=== PATIENT | female | born 1995 | race Caucasian/White ===

== ENCOUNTER 2017-05-27 13:17 | Emergency (ER) | payer BC ==
[~2017-05-27] VITALS: Ht 149.9 cm; Wt 68.0 kg
[~2017-05-27 13:17] MED LIST: CIPRO500 MG PO; MICROGESTIN FE1 EACH PO; PYRIDIUM200 MG PO
[2017-05-27 14:34] LABS: MCH 29.6 PG (29.0-34.0); MCHC 33.9 G/DL (30.0-36.0); MCV 87.5 FL (83-99); MEAN PLAT.VOLUME 10.5 uM^3 (9.5-12.4); PLATELET COUNT 243 K/uL (156-360); RBC DIS.WIDTH-CV 12.1 % (11.8-14.6); RBC DIS.WIDTH-SD 38.7 % (39-53); RED BLOOD COUNT 5.03 M/uL (3.80-5.20); WHITE BLOOD COUNT 11.4 K/uL (4.1-10.2)
[2017-05-27 14:42] LABS: CHLORIDE 106 mEq/L (99-109); POTASSIUM 3.9 mEq/L (3.7-5.4); SODIUM 138 mEq/L (136-147)
[2017-05-27 14:44] LABS: GLUCOSE 74 mg/dL (70-99)
[2017-05-27 14:45] LABS: ANION GAP 11 MEQ/L (2-14)
[2017-05-27 14:46] LABS: TOTAL BILIRUBIN 0.5 mg/dL (0.0-1.0)
[2017-05-27 14:48] LABS: ALKALINE PHOSPHATASE 47 IU/L (3-129); GFR ESTIMATE (CALCULATED) > 59 mL/min/
[2017-05-27 14:49] LABS: UREA NITROGEN (BUN) 7 mg/dL (9-23)
[2017-05-27 15:15] LABS: QUANTITATIVE HCG 109903.1 MIU/ML
[2017-05-27 15:56] LABS: ADD MIUA? YES; BILIRUBIN NEGATIVE; BLOOD NEGATIVE; COLOR YELLOW ((YELLOW)); GLUCOSE (STRIP) NEGATIVE; KETONES 80; LEUKOCYTES LARGE; NITRITE NEGATIVE; PROTEIN (STRIP) NEGATIVE; SPECIFIC GRAVITY 1.015 (1.000-1.030); UROBILINOGEN 0.2 MG/DL (0.2-1.0)
[2017-05-27 16:03] LABS: BACTERIA RARE /HPF; EPITHELIAL CELLS 2+ /HPF; MUCUS TRACE /LPF; RED BLOOD CELLS 0-5 /HPF (0-5); UCUL ADDED? YES; WHITE BLOOD CELLS 15-20 /HPF (0-5)
[2017-05-27] MEDS ORDERED: ZOFRAN ODT4 MG PO (16:09)
[2017-05-27] MEDS ORDERED: MACROBID100 MG PO (16:09)
[2017-05-27 16:36] VITALS: BP 102/55
== END 2017-05-27 16:37 | disposition home or self-care (01) ==
LOC: EME 13:17
PROVIDERS: Nurse Practitioner Family
DX: N39.0 Urinary tract infection, site not specified (principal); R11.2 Nausea with vomiting, unspecified; Z3A.00 Weeks of gestation of pregnancy not specified; Z79.3 Long term (current) use of hormonal contraceptives; Z88.1 Allergy status to other antibiotic agents; Z88.0 Allergy status to penicillin
CPT/HCPCS: 80053; 81003; 84702; 85027; 87086; 99281; 99285; J7030

== ENCOUNTER 2017-07-30 09:24 | Emergency (ER) | payer OTHER ==
[~2017-07-30] VITALS: Ht 149.9 cm; Wt 67.4 kg
[~2017-07-30 09:24] MED LIST changes: +MACROBID100 MG PO; +ZOFRAN ODT4 MG PO
[2017-07-30 10:27] LABS: HEMATOCRIT 36.7 % (36.0-46.0); MCH 30.4 PG (29.0-34.0); MCHC 34.3 G/DL (30.0-36.0); MCV 88.6 FL (83-99); MEAN PLAT.VOLUME 10.4 uM^3 (9.5-12.4); PLATELET COUNT 198 K/uL (156-360); RBC DIS.WIDTH-CV 13.4 % (11.8-14.6); RBC DIS.WIDTH-SD 43.7 % (39-53); RED BLOOD COUNT 4.14 M/uL (3.80-5.20); WHITE BLOOD COUNT 10.5 K/uL (4.1-10.2)
[2017-07-30 10:41] LABS: CHLORIDE 103 mEq/L (99-109); POTASSIUM 3.7 mEq/L (3.7-5.4); SODIUM 136 mEq/L (136-147)
[2017-07-30 10:43] LABS: GLUCOSE 83 mg/dL (70-99)
[2017-07-30 10:44] LABS: ANION GAP 10 MEQ/L (2-14)
[2017-07-30 10:45] LABS: TOTAL BILIRUBIN 0.4 mg/dL (0.0-1.0)
[2017-07-30 10:46] LABS: ALKALINE PHOSPHATASE 52 IU/L (3-129)
[2017-07-30 10:47] LABS: GFR ESTIMATE (CALCULATED) > 59 mL/min/
[2017-07-30 10:48] LABS: UREA NITROGEN (BUN) 7 mg/dL (9-23)
[2017-07-30 11:16] LABS: QUANTITATIVE HCG 49618.1 MIU/ML
[2017-07-30 13:59] LABS: ADD MIUA? YES; BILIRUBIN NEGATIVE; BLOOD NEGATIVE; COLOR YELLOW ((YELLOW)); GLUCOSE (STRIP) NEGATIVE; KETONES 20; LEUKOCYTES MODERATE; NITRITE NEGATIVE; PROTEIN (STRIP) NEGATIVE; SPECIFIC GRAVITY 1.014 (1.000-1.030); UROBILINOGEN 0.2 MG/DL (0.2-1.0)
[2017-07-30 14:34] LABS: BACTERIA 1+ /HPF; CASTS NONE SEEN /LPF; CRYSTALS NONE SEEN; EPITHELIAL CELLS 2+ /HPF; MUCUS 1+ /LPF; RED BLOOD CELLS NONE SEEN /HPF (0-5); UCUL ADDED? YES
[2017-07-30] MEDS ORDERED: MACROBID100 MG PO (15:25)
[2017-07-30 17:46] VITALS: BP 111/65
== END 2017-07-30 17:47 | disposition home or self-care (01) ==
LOC: EME 09:24
DX: O23.42 Unspecified infection of urinary tract in pregnancy, second trimester (principal); O26.892 Other specified pregnancy related conditions, second trimester; R10.9 Unspecified abdominal pain; Z3A.17 17 weeks gestation of pregnancy; Z88.8 Allergy status to other drugs, medicaments and biological substances
CPT/HCPCS: 76805; 80053; 81003; 84702; 85027; 87086; 99281; 99285; J7030

== ENCOUNTER → 2017-10-28 | Outpatient (CLI) | payer OTHER ==
[~2017-10-28] VITALS: Ht 152.4 cm; Wt 75.0 kg
[~2017-10-28] MED LIST changes: +PRENATAL TABLE1 EAC3 PO
[2017-10-28 08:12] VITALS: BP 109/57
== END | disposition home or self-care (01) ==
LOC: IVINF 08:00
DX: Z34.82 Encounter for supervision of other normal pregnancy, second trimester (principal); Z3A.28 28 weeks gestation of pregnancy
CPT/HCPCS: 96372; J2790

== ENCOUNTER 2018-01-15 10:14 | Inpatient (IN) | payer OTHER ==
[~2018-01-15] VITALS: Ht 149.9 cm; Wt 87.9 kg
[2018-01-15] VITALS (14 sets, daily range): BP systolic 109–150; BP diastolic 60–85
[2018-01-15 11:21] LABS: BASOPHIL (%) 0.4 % (0-1); BASOPHIL COUNT 0.1 K/uL (0-0.1); EOSINOPHIL (%) 0.3 % (0-5); EOSINOPHIL COUNT 0.1 K/uL (0-0.3); HEMATOCRIT 34.4 % (36.0-46.0); HEMOGLOBIN 11.3 G/DL (11.9-15.5); IMMATURE GRANULOCYTE (%) 2.4 % (0.0-0.7); LYMPHOCYTE (%) 13.3 % (15-42); LYMPHOCYTE COUNT 3.4 K/uL (1.0-2.8); MCH 28.2 PG (29.0-34.0); MCHC 32.8 G/DL (30.0-36.0); MCV 85.8 FL (83-99); MONOCYTE (%) 8.7 % (3-12); MONOCYTE COUNT 2.2 K/uL (0-0.8); NEUTROPHIL (%) 74.9 % (45-76); NEUTROPHIL COUNT 18.9 K/uL (1.8-6.4); PLATELET COUNT 224 K/uL (156-360); RBC DIS.WIDTH-CV 13.7 % (11.8-14.6); RBC DIS.WIDTH-SD 42.2 % (39-53); RED BLOOD COUNT 4.01 M/uL (3.80-5.20); WHITE BLOOD COUNT 25.2 K/uL (4.1-10.2)
[2018-01-15] MEDS ORDERED: IBUPROFEN800 MG PO (15:50)
[2018-01-15 17:06] LABS: BASOPHIL (%) 0.2 % (0-1); BASOPHIL COUNT 0.1 K/uL (0-0.1); EOSINOPHIL (%) 0 % (0-5); HEMATOCRIT 31.1 % (36.0-46.0); HEMOGLOBIN 10.4 G/DL (11.9-15.5); IMMATURE GRANULOCYTE (%) 1.5 % (0.0-0.7); LYMPHOCYTE (%) 5.5 % (15-42); LYMPHOCYTE COUNT 1.7 K/uL (1.0-2.8); MCH 29.1 PG (29.0-34.0); MCHC 33.4 G/DL (30.0-36.0); MCV 86.9 FL (83-99); MONOCYTE (%) 6.3 % (3-12); MONOCYTE COUNT 1.9 K/uL (0-0.8); NEUTROPHIL (%) 86.5 % (45-76); NEUTROPHIL COUNT 25.8 K/uL (1.8-6.4); PLATELET COUNT 191 K/uL (156-360); RBC DIS.WIDTH-CV 13.7 % (11.8-14.6); RBC DIS.WIDTH-SD 42.4 % (39-53); RED BLOOD COUNT 3.58 M/uL (3.80-5.20); WHITE BLOOD COUNT 29.9 K/uL (4.1-10.2)
[2018-01-15 17:15] LABS: ALBUMIN 2.9 G/DL (3.2-4.8); CHLORIDE 107 MEQ/L (99-109); POTASSIUM 4.1 MEQ/L (3.7-5.4); SODIUM 138 MEQ/L (136-147); TOTAL BILIRUBIN 0.3 MG/DL (0.0-1.0)
[2018-01-15 17:21] LABS: ALKALINE PHOSPHATASE 329 IU/L (3-129); ALT (GPT) 6 IU/L (3-49); AST (GOT) 16 IU/L (2-34); CREATININE 0.8 MG/DL (0.6-1.3); GFR ESTIMATE (CALCULATED) > 59 mL/min/; GLUCOSE 127 mg/dL (70-99); TOTAL PROTEIN 5.7 G/DL (6.4-8.3); UREA NITROGEN (BUN) 9 mg/dL (9-23)
[2018-01-16 16:15] VITALS: BP 140/70
[2018-01-17 08:16] VITALS: BP 124/60
== END 2018-01-17 13:56 | disposition home or self-care (01) | DRG 775 ==
LOC: LDRP-OP 10:14 → 2WEST 10:15
PROVIDERS: Advanced Practice Midwife; Obstetrics & Gynecology Gynecology
PROC: 00HU33Z Insertion of Infusion Device into Spinal Canal, Percutaneous Approach (ICD-10-PCS; principal; 2018-01-15)
PROC: 3E0R3BZ Introduction of Anesthetic Agent into Spinal Canal, Percutaneous Approach (ICD-10-PCS; principal; 2018-01-15)
PROC: 10E0XZZ Delivery of Products of Conception, External Approach (ICD-10-PCS; principal; 2018-01-15)
DX: O99.340 Other mental disorders complicating pregnancy, unspecified trimester (principal); F41.9 Anxiety disorder, unspecified; O99.213 Obesity complicating pregnancy, third trimester; Z3A.00 Weeks of gestation of pregnancy not specified; E66.3 Overweight; Z3A.39 39 weeks gestation of pregnancy; Z37.0 Single live birth; Z68.29 Body mass index [BMI] 29.0-29.9, adult
CPT/HCPCS: 80053; 83030; 85025; 85025 91; 86850; 86900; 86901; 93005; C1755; J2405; J2790; J2795; J7120